=== PATIENT | male | born 1985 | race Caucasian/White ===

== ENCOUNTER 2016-05-11 15:34 | Emergency (ER) | payer OTHER ==
[~2016-05-11] VITALS: Ht 180.3 cm; Wt 97.5 kg
== END 2016-05-11 16:22 | disposition home or self-care (01) ==
LOC: ED 15:34
DX: H10.33 Unspecified acute conjunctivitis, bilateral (principal); F17.200 Nicotine dependence, unspecified, uncomplicated

== ENCOUNTER 2023-02-27 19:03 | Emergency (ER) | payer SELFPAY ==
[~2023-02-27] VITALS: Ht 177.8 cm; Wt 74.8 kg
[2023-02-27] MEDS ORDERED: ZOLOFT100 MG PO (19:13)
[2023-02-27 19:36] LABS: BASO % 0.2 % (0.0-1.0); HEMATOCRIT 39.9 % (42.0-52.0); LYMPH # 1.7 10*3/uL (1.3-4.4); LYMPH % 21.5 % (27.0-41.0); MEAN CELL VOLUME 87.7 fl (80.0-94.0); MEAN CORPUSCULAR HGB 28.8 pg (27.0-31.0); MEAN CORPUSCULAR HGB CONC 32.8 g/dl (33.0-37.0); MEAN PLATELET VOLUME 9.3 fl (9.6-12.3); MONO # 0.7 10*3/uL (0.1-1.0); MONO % 8.4 % (3.0-9.0); NEUT # 5.6 10*3/uL (2.3-7.9); NEUT % 69.8 % (47.0-73.0); PLATELET COUNT AUTOMATED 203 10*3/uL (130-400); RED BLOOD COUNT 4.55 10*6/uL (4.50-5.90); RED CELL DISTRI WIDTH 13.2 % (0-14.5); WHITE BLOOD COUNT 8.1 10*3/uL (4.8-10.8)
[2023-02-27 19:51] LABS: ACT PARTIAL THROMBO TIME 34.7 SECONDS (20.0-32.1)
[2023-02-27 19:57] LABS: ALKALINE PHOSPHATASE 80 U/L (46-116); BUN 18 mg/dl (9-23); CHLORIDE 105 mmol/L (98-107); CPK 161 U/L (34-171); POTASSIUM 3.8 mmol/L (3.4-5.1); SGPT/ALT 35 U/L (5-49)
[2023-02-27 20:01] LABS: BILIRUBIN Negative (Negative); BLOOD Negative (Negative); CLARITY Clear (Clear); COLOR Yellow (Yellow); GLUCOSE Negative (Negative); KETONE Negative (Negative); LEUKO ESTERASE Negative (Negative); NITRITE Negative (Negative); PH 5.5 (4.5-8.0); SPECIFIC GRAVITY 1.025 (1.001-1.030)
[2023-02-27 20:08] LABS: URINE AMPHETAMINES Positive (1000ng/ml); URINE BARBITURATES Negative (200ng/ml); URINE BENZODIAZEPINES Negative (200ng/ml); URINE CANNABINOIDS (THC) Positive (50ng/ml); URINE COCAINE Negative (300ng/ml); URINE METHADONE Negative (300ng/ml); URINE OPIATES Negative (300ng/ml); URINE PHENCYCLIDINE Negative (25ng/ml)
[2023-02-27 20:19] LABS: RBC 0-2 rbc/hpf (0-2)
[2023-02-27 20:20] LABS: HYALINE CAST 0-2
== END 2023-02-27 22:43 | disposition home or self-care (01) ==
LOC: ED 19:03
PROVIDERS: Nurse Practitioner Family
DX: R07.89 Other chest pain (principal); Z20.822 Contact with and (suspected) exposure to COVID-19; R06.02 Shortness of breath; F15.90 Other stimulant use, unspecified, uncomplicated; F32.A Depression, unspecified; F17.210 Nicotine dependence, cigarettes, uncomplicated; Z79.899 Other long term (current) drug therapy

== ENCOUNTER 2023-10-19 04:17 | Emergency (ER) | payer SELFPAY ==
[~2023-10-19] VITALS: Ht 177.8 cm; Wt 73.5 kg
[~2023-10-19 04:17] MED LIST: ZOLOFT100 MG PO
[2023-10-19] MEDS ORDERED: Tdap Vaccine 0.5 ML SYR (Adult Vaccine) IM ONE (04:35)
[2023-10-19] MEDS ORDERED: CEPHALEXIN 500 MG CAP PO ONE (04:50)
[2023-10-19] MEDS ORDERED: CEPHALEXIN500 M1 PO (04:50)
== END 2023-10-19 06:29 | disposition home or self-care (01) ==
LOC: ED
DX: S61.411A Laceration without foreign body of right hand, initial encounter (principal); F15.159 Other stimulant abuse with stimulant-induced psychotic disorder, unspecified; W25.XXXA Contact with sharp glass, initial encounter; Y93.89 Activity, other specified; Y92.481 Parking lot as the place of occurrence of the external cause; Y99.8 Other external cause status

== ENCOUNTER 2023-10-20 17:14 | Emergency (ER) | payer SELFPAY ==
[~2023-10-20] VITALS: Ht 182.8 cm; Wt 68.0 kg
[~2023-10-20 17:14] MED LIST changes: +CEPHALEXIN500 M1 PO
[2023-10-20 17:36] LABS: BASO # 0.1 10*3/uL (0.0-0.1); BASO % 0.7 % (0.0-1.0); EOS % 0.3 % (1.0-4.0); LYMPH # 2.7 10*3/uL (1.3-4.4); LYMPH % 22.7 % (27.0-41.0); MEAN CELL VOLUME 92.5 fl (80.0-94.0); MEAN CORPUSCULAR HGB CONC 32.4 g/dl (33.0-37.0); MEAN PLATELET VOLUME 9.3 fl (9.6-12.3); MONO % 8.6 % (3.0-9.0); NEUT % 67.1 % (47.0-73.0); PLATELET COUNT AUTOMATED 324 10*3/uL (130-400); RED BLOOD COUNT 4.54 10*6/uL (4.50-5.90); WHITE BLOOD COUNT 11.9 10*3/uL (4.8-10.8)
[2023-10-20 18:11] LABS: BUN 29 mg/dl (9-23); CHLORIDE 108 mmol/L (98-107); POTASSIUM 5.1 mmol/L (3.4-5.1)
[2023-10-20 18:12] LABS: CPK 1733 U/L (34-171); ETHYL ALCOHOL < 3.0 mg/dl (<3)
[2023-10-20] MEDS ORDERED: Ketamine Hydrochloride 500 MG/10 ML VIAL IM ONE (20:50)
[2023-10-21] MEDS ORDERED: Midazolam Hydrochloride 5 MG/5 ML VIAL IM ONE (00:10)
[2023-10-21] MEDS ORDERED: diphenhydrAMINE hydrochloride 50 MG/ML VIAL IM ONE (00:10)
== END 2023-10-21 00:47 ==
LOC: ED 17:14
PROVIDERS: Emergency Medicine
DX: F29 Unspecified psychosis not due to a substance or known physiological condition (principal); F15.10 Other stimulant abuse, uncomplicated; Z79.899 Other long term (current) drug therapy

== ENCOUNTER 2025-01-01 23:12 | Emergency (ER) | payer MEDICAID ==
[~2025-01-01] VITALS: Ht 177.8 cm; Wt 68.0 kg
== END 2025-01-02 00:15 | disposition home or self-care (01) ==
LOC: ED 23:12
DX: F41.9 Anxiety disorder, unspecified (principal); Z79.899 Other long term (current) drug therapy; Z76.5 Malingerer [conscious simulation]